=== PATIENT | female | born 1980 | race Caucasian/White ===

== ENCOUNTER → 2016-08-13 | Day surgery (SDC) | payer OTHER ==
--- NOTE | 2016-08-12 16:56 | History & Physical Pre-Op ---
General Information and HPI History of Present Illness: Dina is a 36-year-old female with a long-standing worsening complaint of a painful bunion left foot. The patient has undergone an extended course of conservative care, including shoe gear and activity modification, rest, immobilization and courses of NSAIDs. None of this is yielded her any significant relief. The patient presents today for preoperative surgical consultation. Allergies/Medications Allergies: Coded Allergies: No Known Allergies (08/12/16) Past History Surgical History Pertinent Surgical History: Review of Systems Review of Systems: Unremarkable except for that noted in history of present illness Exam & Diagnostic Data Last 24 Hrs of Vital Signs/I&O Intake & Output 08/12 1600 08/12 0800 08/12 0000 Intake Total Output Total Balance Patient 185 lb Weight Physical Exam: Lungs clear bilaterally. Heart sounds rate and rhythm regular. Lower extremity physical exam demonstrates intact pedal pulses bilaterally. Both dorsalis pedis and posterior tibial arteries are palpable bilaterally. Patient without any sensory motor deficits. Deep tendon reflexes grossly intact. Pain noted with palpation range of motion through the left first metatarsophalangeal joint. The hallux is noted to be tracking in track bound. No crepitus noted with range of motion. Assessment/Plan Assessment/Plan: Painful bunion left foot. A lengthy discussion reviewing both surgical and conservative options was held the patient at bedside and the patient elects to go forward with surgery despite the risks. As Ranked By This Provider Problem List: 1. Acquired hallux valgus of left foot Attending MD Review Statement Attending Statement Attending MD Statement: examined this patient
[~2016-08-13] VITALS: Ht 165.1 cm; Wt 83.9 kg
--- NOTE | 2016-08-13 09:32 | Operative Report ---
Operative/Inv Procedure Report Surgery Date: 08/13/16 Name of Procedure: 1 bunionectomy left foot Pre-Operative Diagnosis: 1 bunion left foot Post-Operative Diagnosis: The same Estimated Blood Loss: scant Surgeon/Meat Inspector: ELESA PATEL DPM Anesthesia: moderate sedation, block Operative/Procedure Note Note: After obtaining informed consent the patient was brought to the operating room and placed on the operating table in the supine position. The patient was then securely fastened to the operating table utilizing safety belt. After administration of IV sedation, 10 mL of 0.5% Marcaine plain was infiltrated about the patient's left ankle. A well-padded ankle tourniquet was placed about the patient's left lower extremity. 2 g of Ancef were delivered intravenously times one dose. Left foot and ankle within scrubbed prepped and draped in the usual aseptic manner. The left lower extremity was elevated to examine to limb, at which point the ankle tourniquet was inflated to 250 mmHg. Attention was directed dorsal aspect of the left foot, where a 6 cm linear incision was made just medial to the extensor hallucis longus tendon. The skin was sized 15 blade and deepened subtenons tissues. All vital neurovascular structures were identified protected. An inverted L capsulotomy was performed exposing the medial eminence was removed with a sagittal bone saw. Attention was then directed first interspace where a lateral capsulotomy was performed with release of the fibular suspensory ligament and the oblique head of the abductor hallucis tendon. The extensor hallucis brevis tendon was then tenotomized. A Chevron type tear osteotomy was performed and the capital fragment was translated laterally. It was then fixated utilizing standard AO fixation techniques. The medial shelf was then removed and the capsular structures were repaired with 3-0 Vicryl subtenons tissues report with 4-0 Vicryl and the skin edges reapproximated 4-0 Monocryl. The incision was then dressed with Steri-Strips Xeroform 4 x 4's Kerlix and an Allan wrap. The patient was noted tolerate both procedure and anesthesia well and the patient was transported from the operating room to recovery via signs stable best assess intact all digits left foot.
== END ==
LOC: STS 01:04
DX: M21.612 Bunion of left foot (principal)
CPT/HCPCS: 81025; 88304; J0690; J1885; J2001; J2250